=== PATIENT | female | born 1955 | race Caucasian/White ===

== ENCOUNTER 2017-09-08 09:07 | Emergency (ER) | payer BC ==
[~2017-09-08 09:07] MED LIST: KET10 PO; LOR5/325 PO
--- NOTE | 2017-09-08 09:09 | ER Report ---
History and Physical Time Seen By MD: 09:08 HPI/ROS CC: Low back pain HPI: 62-year-old female presents to the emergency department per POV. Patient states that she was putting on a pass approximately 48 hours ago when she had instant pain in her left lower back radiating into her left nontoxic. She denies loss of bowel or bladder. It is sharp shooting in nature. Worse with sitting and standing. She has not experienced this pain in the past. She is rating her pain as a 9 out of 10. Again it is reproducible with sitting. Lying in a car was excruciating. ROS: 12 point review of systems essentially negative other than what's mentioned in history of present illness. NURSES AND OLD MEDICAL RECORDS: Reviewed PMH: Reviewed SURGICAL HX: Reviewed FAMILY HX: Noncontributory SOCIAL HX: Denies smoking alcohol or illicit drugs. She is lives a home. VITAL SIGNS: Reviewed CONSTITUTIONAL: 62-year-old female in moderate distress. PHYSICAL EXAM: HEENT: Pupils equal round reactive to light and accommodate, EOMI, tympanic membranes pearly white umbo present with good light reflex. Lips dry mucous membranes moist gums nonbleeding uvula midline and rises equally with phonation, oropharynx noninjected, teeth intact. NECK: Neck supple, thyroid not appreciated, anterior and posterior cervical lymphadenopathy not appreciated. Trachea midline and rises equally with phonation. CARDIAC: S1-S2 regular rate rhythm no murmurs rubs or gallops. LUNGS: Lungs clear bilaterally posteriorly in all vann. Good air movement. ABDOMEN: Abdomen soft, nondistended, bowel sounds active in all 4 quadrants, no bruits noted, no CVA tenderness. MUSCULOSKELETAL: Strength 5 out of 5 x 4 extremities, no deformities noted. Straight leg raise of the left at 30 reproduces pain in the left buttocks. NEUROLOGIC: Patient alert and oriented by 3 Allergies: Coded Allergies: Sulfa (Sulfonamide Antibiotics) (Verified Allergy, Unknown, 03/26/16) PT'S MOM TOLD HER. Home Meds Reported Medications Simvastatin (SIMVASTATIN) 10 Mg Tablet, 10 MG PO HS, TAB 09/08/17 Discontinued Scripts Hydrocodone Bit/Acetaminophen (HYDROCODON-ACETAMINOPHEN 5-325) 1 Each Tablet, 1 EACH PO Q4-6H Y for PAIN, #30 TAB Prov:IBETH ROBLEDO MD 03/27/16 Ketorolac Tromethamine (KETOROLAC TROMETHAMINE) 10 Mg Tab, 10 MG PO Q6H, #16 TAB Prov:IBETH ROBLEDO MD 03/27/16 Hx Smoking: Yes (10 CIGS/DAY X 42 YRS) Smoking Status: Current: Every Day Smoker Hx Alcohol Use: No Constitutional Vital Sign - Last 24 Hours 09/08/17 09/08/17 09/08/17 09/08/17 09:11 09:16 09:17 09:18 Temp 97.6 Pulse 104 Resp 18 B/P (MAP) 151/118 151/118 (129) 148/110 (123) Pulse Ox 95 96 O2 Delivery Room Air 09/08/17 09/08/17 09/08/17 09:22 10:00 10:02 Pulse 103 80 B/P (MAP) 166/114 (131) Pulse Ox 93 93 Medical Decision Making EKG/Imaging Imaging MRI lumbar spine: Disc Spaces: Lower thoracic spine: Mild degenerative changes without stenosis. L1-2: Moderate circumferential disc bulge. No significant stenosis. L2-3: Mild circumferential disc bulge. No significant stenosis. L3-4: Mild circumferential disc bulge with right anterior annular fissure. No significant stenosis. L4-5: Mild circumferential disc bulge with small anterior annular fissure and mild facet hypertrophy. No spinal canal stenosis. Mild bilateral neural foraminal stenosis. L5-S1: Disc height loss with circumferential disc bulge and facet hypertrophy and small superimposed central disc extrusion. Mild to moderate bilateral lateral recess stenosis. Mild right and moderate left neural foraminal stenosis. IMPRESSION: 1. Multilevel degenerative disc disease and facet hypertrophy. Stenosis is most severe in the left L5-S1 neural foramen. 2. Partially imaged left inferior renal cyst measuring at least 6.8 x 5.8 cm. ED Course/Re-evaluation ED Course Patient received Dilaudid 2 mg IM. Patient's pain much improved. I discussed with in detail the findings of the MRI. She is to follow-up with her PCP for possible referral to pain management for possible epidural steroids. Patient will plan and in agreement. Re-evaluation Disc herniation, spinal stenosis, muscle strain. Patient does have indicative pathology and L5 left stenosis with central disc herniation. Patient did not receive steroids as this is not effective for this pathology. Also it limits the number of epidural steroids. She can receive by giving oral steroids. I explained this to the patient. Decision to Disposition Date: Sep 08, 2017 Decision to Disposition Time: 12:19 Depart Departure Latest Vital Signs Vital Signs Date Time Temp Pulse Resp B/P (MAP) Pulse Ox O2 Delivery O2 Flow Rate FiO2 09/08/17 10:02 80 93 09/08/17 10:00 166/114 (131) 09/08/17 09:11 97.6 18 Room Air Impression: Primary Impression: Spinal stenosis of lumbar region with radiculopathy Additional Impression: Lumbar disc herniation with radiculopathy Condition: Improved Disposition: HOME OR SELF-CARE Referrals: MARISOL BURNETT DO (PCP) New Scripts Oxycodone Hcl (OXYCONTIN) 10 Mg Tab.er.12h 10 MG PO Q6H Y for PAIN, #15 TAB Prov: LISA CONTRERAS MD 09/08/17 Patient Instructions: Sciatica (ED) Additional Instructions: You have been given oxycodone take as directed. Follow-up with your regular doctor for referral to pain management. Problem Qualifiers LISA CONTRERAS MD Sep 08, 2017 09:09
[2017-09-08] MEDS ORDERED: SIMV10TA98 PO (09:17)
[2017-09-08] MEDS ORDERED: HYDROmorphone HCL 2 MG/ML SDV IM ONE (09:35)
--- NOTE | 2017-09-08 11:59 | RADIOLOGY IMAGING REPORT ---
FACILITY: [facility] - [place] PATIENT NAME: Camryn Barrientos : 1955 MR: [id number] V: [id number] EXAM DATE: ORDERING PHYSICIAN: LISA CONTRERAS TECHNOLOGIST: Location: [facility] [place] Patient: Camryn Barrientos : 1955 Visit/Account:[id number] Date of Sevice: 09/08/2017 EXAMINATION: Lumbar spine MRI without IV contrast HISTORY: Left sciatica. COMPARISON: None. TECHNIQUE: Multi-planar, multi-sequence lumbar spine MRI was performed without intravenous contrast administration. FINDINGS: Alignment: Slight kyphosis at L1-L2. No listhesis. Vertebral marrow signal: Mild discogenic bone marrow edema at L1-L2 and L5-S1. A few small Schmorl's nodes. Otherwise negative. Distal thoracic cord: Negative. Conus: negative, terminates at L1-L2 Cauda equina: Negative. Paravertebral soft tissues: Negative. Visualized abdominal and pelvic structures: Partially imaged left inferior renal cyst measuring at le ast 6.8 x 5.8 cm. There is an additional 4 mm left lateral renal cyst. Disc Spaces: Lower thoracic spine: Mild degenerative changes without stenosis. L1-2: Moderate circumferential disc bulge. No significant stenosis. L2-3: Mild circumferential disc bulge. No significant stenosis. L3-4: Mild circumferential disc bulge with right anterior annular fissure. No significant stenosis. L4-5: Mild circumferential disc bulge with small anterior annular fissure and mild facet hypertrophy. No spinal canal stenosis. Mild bilateral neural foraminal stenosis. L5-S1: Disc height loss with circumferential disc bulge and facet hypertrophy and small superimposed central disc extrusion. Mild to moderate bilateral lateral recess stenosis. Mild right and moderate l eft neural foraminal stenosis. IMPRESSION: 1. Multilevel degenerative disc disease and facet hypertrophy. Stenosis is most severe in the left L5 -S1 neural foramen. 2. Partially imaged left inferior renal cyst measuring at least 6.8 x 5.8 cm. Report Dictated By: Larry Beckett MD at 09/08/2017 11:46 AM Report E-Signed By: Larry Beckett MD at 09/08/2017 11:56 AM WSN:[id number]
[2017-09-08] MEDS ORDERED: OXYC-823 PO (12:22)
[2017-09-08 12:29] VITALS: BP 168/116
== END 2017-09-08 12:37 | disposition home or self-care (01) ==
LOC: ER 09:12
DX: M48.061 Spinal stenosis, lumbar region without neurogenic claudication (principal); M51.16 Intervertebral disc disorders with radiculopathy, lumbar region
CPT/HCPCS: 72148; 96372; 99283; J1170

== ENCOUNTER → 2017-11-25 | Outpatient (CLI) | payer BC ==
[~2017-11-25] MED LIST changes: +OXYC-823 PO; +SIMV10TA98 PO
[2017-11-25 12:16] LABS: LDL CHOLESTEROL 80 mg/dl
== END ==
LOC: LAB 10:40
PROVIDERS: ATTEND Family Medicine
DX: E78.5 Hyperlipidemia, unspecified (principal)
CPT/HCPCS: 36415; 82040; 82247; 82310; 82374; 82435; 82465; 82565; 82947; 83718; 84075; 84132; 84155; 84295; 84450; 84460; 84478; 84520

== ENCOUNTER → 2018-06-05 | Outpatient (CLI) | payer MEDICARE, OTHER ==
[2018-06-05 09:37] LABS: LDL CHOLESTEROL 74 mg/dl
== END ==
LOC: LAB 09:01
PROVIDERS: ATTEND Family Medicine
DX: E78.5 Hyperlipidemia, unspecified (principal)
CPT/HCPCS: 36415; 82040; 82247; 82310; 82374; 82435; 82465; 82565; 82947; 83718; 84075; 84132; 84155; 84295; 84450; 84460; 84478; 84520

== ENCOUNTER → 2018-08-11 | Outpatient (CLI) | payer MEDICARE, OTHER ==
--- NOTE | 2018-08-12 08:46 | RADIOLOGY IMAGING REPORT ---
FACILITY: [facility] [place] PATIENT NAME: LUKASZ YOO : [id number] MR: [id number] V: [id number] EXAM DATE: ORDERING PHYSICIAN: MARISOL BURNETT TECHNOLOGIST: Edith Shi PROCEDURE:BILATERAL DIGITAL SCREENING MAMMOGRAM WITH CAD ASSISTED INTERPRETATION & 3D TOMOSYNTHESIS COMPARISON:Prior mammograms 07/26/17, 06/25/16, 06/22/15, 04/07/14, 04/06/13, 04/02/12. INDICATIONS:SCREENING FINDINGS: Moderately heterogeneous fibroglandular tissue is seen throughout the breasts. Scattered calcifications throughout the breasts have remained stable. There is no evidence of malignant appearing mass, malignant appearing calcifications or other secondary sign of malignancy in either breast. DIAGNOSTIC CATEGORY 2--BENIGN FINDING. RECOMMENDATIONS: ROUTINE MAMMOGRAM AND CLINICAL EVALUATION. IMPRESSION: BIRADS 2: Benign finding. No significant abnormality is seen. Dictated by: Elvia Thurston M.D. on 08/11/2018 at 16:32 Transcribed by: BRENT on 08/12/2018 at 7:55 Approved by: Elvia Thurston M.D. on 08/12/2018 at 8:45 [facility]
== END ==
LOC: MAMO 03:38
PROVIDERS: ATTEND Family Medicine
DX: Z12.31 Encounter for screening mammogram for malignant neoplasm of breast (principal)
CPT/HCPCS: 77063; 77067